=== PATIENT | female | born 1980 | race Two or more races ===

== ENCOUNTER → 2016-12-28 | Outpatient (REF) | payer BC ==
[2016-12-28 12:20] LABS: THYROXINE (T4) 5.8 UG/DL (4.5-12.0)
== END ==
LOC: M SFHCCLAY 09:04
PROVIDERS: ATTEND Family Medicine
DX: E03.9 Hypothyroidism, unspecified (principal)

== ENCOUNTER → 2017-02-14 | Outpatient (REF) | payer BC | LOC: M SFHCCLAY 11:36 | PROVIDERS: ATTEND Family Medicine | DX: E03.9 Hypothyroidism, unspecified (principal) ==

== ENCOUNTER → 2017-03-23 | Outpatient (REF) | payer BC | LOC: M SFHCCLAY 11:04 | PROVIDERS: ATTEND Family Medicine | DX: E03.9 Hypothyroidism, unspecified (principal) ==

== ENCOUNTER → 2018-02-18 | Outpatient (REF) | payer BC | LOC: M SFHCCLAY 15:32 | DX: E03.9 Hypothyroidism, unspecified (principal) | CPT/HCPCS: 84443 ==

== ENCOUNTER → 2018-08-10 | Outpatient (CLI) | payer BC | LOC: M WUC 12:15 | DX: M51.34 Other intervertebral disc degeneration, thoracic region (principal); M40.204 Unspecified kyphosis, thoracic region; M54.5 Low back pain; Z97.5 Presence of (intrauterine) contraceptive device | CPT/HCPCS: 72072 ==

== ENCOUNTER → 2018-10-28 | Outpatient (REF) | payer BC ==
[2018-10-28 17:36] LABS: BASO # 0.1 10^3/uL (0.0-0.2); EOS # 0.7 10^3/uL (0.0-0.50); EOS % 7.4 % (0.0-3.0); HEMATOCRIT 40.5 % (36.0-47.0); HEMOGLOBIN 13.2 g/dl (12.0-15.5); LYMPH # 3.8 10^3/uL (1.5-4.5); LYMPH % 40.9 % (24.0-44.0); MEAN CORPUSCULAR HEMOGLOBIN 28.8 pg (27.0-33.0); MEAN CORPUSCULAR HGB CONC 32.6 g/dl (32.0-36.5); MEAN CORPUSCULAR VOLUME 88.2 fl (80.0-96.0); MONO # 0.7 10^3/uL (0.0-0.8); MONO % 7.2 % (0.0-5.0); NEUTROPHILS # 4.1 10^3/uL (1.8-7.7); NEUTROPHILS % 43.3 % (36.0-66.0); PLATELET COUNT, AUTOMATED 253 10^3/uL (150-450); RED BLOOD COUNT 4.59 10^6/uL (4.00-5.40); WHITE BLOOD COUNT 9.4 10^3/uL (4.0-10.0)
[2018-10-28 17:46] LABS: ALBUMIN 4.2 GM/DL (3.2-5.2); ALT/SGPT 18 U/L (12-78); BILIRUBIN,TOTAL 0.3 MG/DL (0.2-1.0); BLOOD UREA NITROGEN 14 MG/DL (7-18); CALCIUM LEVEL 9.3 MG/DL (8.5-10.1); CARBON DIOXIDE LEVEL 28 MEQ/L (21-32); CHLORIDE LEVEL 106 MEQ/L (98-107); CREATININE FOR GFR 0.73 MG/DL (0.55-1.30); GLOMERULAR FILTRATION RATE > 60.0 (>60); GLUCOSE, FASTING 85 MG/DL (70-100); POTASSIUM SERUM 4.3 MEQ/L (3.5-5.1); SODIUM LEVEL 140 MEQ/L (136-145); TOTAL PROTEIN 7.4 GM/DL (6.4-8.2)
[2018-10-28 17:47] LABS: FOLATE 8.1 NG/ML (>5.4)
[2018-10-28 19:13] LABS: VITAMIN B12 LEVEL 839 PG/ML (247-911)
== END ==
LOC: M SFHCCLAY 10:38
PROVIDERS: ATTEND Family Medicine
DX: E03.9 Hypothyroidism, unspecified (principal); R20.2 Paresthesia of skin; R20.0 Anesthesia of skin

== ENCOUNTER → 2018-11-09 | Outpatient (CLI) | payer BC ==
--- NOTE | 2018-11-11 09:03 | REP ---
MR THORACIC SPINE WITHOUT CONTRAST: HISTORY: Back pain. A small central disc protrusion is present at the T5-6 level. There is minimal effacement of the thecal sac without spinal cord compression. The T5 neural foramina are patent. A small right paracentral disc protrusion is present at the T7-8 level. There is minimal effacement of the thecal sac without spinal cord compression. The T7 neural foramina are patent. There is no other disc bugle or herniation. The remaining neural foramina are patent. The spinal cord is normal in signal intensity. There is loss of height of several mid thoracic intervertebral discs consistent with disc degeneration. Increased signal intensity on T2-weighted images is present in the endplates of several mid thoracic vertebral bodies. This represents degenerative change. IMPRESSION: Small disc protrusions at the T5-6 and T7-8 levels without spinal cord compression. Electronically Signed by Best Shetty MD 11/11/2018 09:49 A
== END ==
LOC: M RAD 09:15
PROVIDERS: ATTEND Family Medicine
DX: R20.2 Paresthesia of skin (principal); M51.24 Other intervertebral disc displacement, thoracic region

== ENCOUNTER → 2018-11-19 | Outpatient (REF) | payer BC ==
[2018-11-19 14:21] LABS: ALBUMIN 4.2 GM/DL (3.2-5.2); ALT/SGPT 18 U/L (12-78); BILIRUBIN,TOTAL 0.5 MG/DL (0.2-1.0); BLOOD UREA NITROGEN 14 MG/DL (7-18); CALCIUM LEVEL 9.1 MG/DL (8.5-10.1); CARBON DIOXIDE LEVEL 26 MEQ/L (21-32); CHLORIDE LEVEL 107 MEQ/L (98-107); CREATININE FOR GFR 0.74 MG/DL (0.55-1.30); GLOMERULAR FILTRATION RATE > 60.0 (>60); GLUCOSE, FASTING 74 MG/DL (70-100); RHEUMATOID FACTOR QUANT < 10.0 IU/ML (<15.0); SODIUM LEVEL 140 MEQ/L (136-145); TOTAL PROTEIN 7.7 GM/DL (6.4-8.2)
[2018-11-20 10:42] LABS: DRVV SCREEN 39.1 SEC
[2018-11-20 10:49] LABS: PTT LUPUS TYPE ANTICOAG SCREEN 0.9 (0-1.2)
[2018-11-21 10:28] LABS: ALBUMIN 4.79 GM/DL (3.29-5.55); ALBUMIN % 62.2 % (55.8-66.1); ALPHA-1-GLOBULIN % 3.1 % (2.9-4.9); ALPHA-1-GLOBULINS 0.24 GM/DL (0.17-0.41); ALPHA-2-GLOBULINS 0.68 GM/DL (0.42-0.99); ALPHA-2-GLOBULINS % 8.8 % (7.1-11.8); BETA-1-GLOBULINS 0.43 GM/DL (0.28-0.60); BETA-1-GLOBULINS % 5.6 % (4.7-7.2); BETA-2-GLOBULINS 0.36 GM/DL (0.19-0.55); BETA-2-GLOBULINS % 4.7 % (3.2-6.5); GAMMA GLOBULIN % 15.6 % (11.1-18.8)
[2018-11-24 00:07] LABS: ANCA-ATYPICAL <1:20 titer (Neg:<1:20); ANTI DOUBLE STRAND-DNA AB 4 IU/mL (0-9); ANTINUCLEAR ANTIBODIES DIRECT Negative (Negative); CYTOPLASMIC NEUTROP AB ANCA-C <1:20 titer (Neg:<1:20); PERINUCLEAR AB ANCA-P <1:20 titer (Neg:<1:20); SJOGREN'S ANTI SS-A <0.2 AI (0.0-0.9); SJOGREN'S ANTI SS-B <0.2 AI (0.0-0.9); VITAMIN B1 LEVEL WHOLE BLOOD 115.5 nmol/L (66.5-200.0); VITAMIN B6,PYRIDOXAL PHOSPHATE 10.9 ug/L (2.0-32.8); VITAMIN E(ALPHA TOCOPHEROL) 11.3 mg/L (5.9-19.4); VITAMIN E(GAMMA TOCOPHEROL) 0.9 mg/L (0.7-4.9)
== END ==
LOC: M LABNEURO 10:21
PROVIDERS: ATTEND Psychiatry & Neurology Neurology
DX: G62.9 Polyneuropathy, unspecified (principal)

== ENCOUNTER 2019-01-10 06:00 | Day surgery (SDC) | payer BC ==
[~2019-01-10] VITALS: Ht 175.3 cm; Wt 81.1 kg
[~2019-01-10 06:00] MED LIST: LR 1,000 ML IV SCH; SYNT75TA PO
[2019-01-10 06:43] LABS: URINE PREG TEST NEGATIVE (NEGATIVE)
[2019-01-10] MEDS ORDERED: PROPOFOL 200 MG/20 ML VIAL As Ordered ONE ×2 (07:05→08:05)
[2019-01-10] MEDS ORDERED: LIDOCAINE 2% INJ 100 MG/5 ML SDV (FOR ANES.) As Ordered ONE (07:05)
[2019-01-10] MEDS ORDERED: dexameTHASONE 4 MG/ML 1ML VIAL (J1100) As Ordered ONE (07:06)
[2019-01-10] MEDS ORDERED: KETOROLAC 60 MG/2 ML VIAL (J1885) As Ordered ONE (07:06)
[2019-01-10] MEDS ORDERED: ROCURONIUM BROMIDE 50 MG/5 ML VIAL As Ordered ONE (07:06)
[2019-01-10] MEDS ORDERED: ONDANSETRON 4MG/2ML VIAL (J2405) As Ordered ONE (07:06)
[2019-01-10] MEDS ORDERED: ACETAMINOPHEN 1000MG 100ML IV BTL (OFIRMEV) (J0131 PER 10MG) As Ordered ONE (07:06)
[2019-01-10] MEDS ORDERED: BUPIVACAINE HCL 0.25% 30 ML VIAL As Ordered ONE (07:09)
[2019-01-10] MEDS ORDERED: LIDOCAINE 1% SDV INJ 30 ML VIAL As Ordered ONE (07:09)
[2019-01-10] MEDS ORDERED: fentaNYL 100 MCG/2 ML INJECTION (J3010) As Ordered ONE ×2 (07:17→07:59)
[2019-01-10] MEDS ORDERED: MIDAZOLAM INJ 2 MG/2 ML VIAL (J2250) As Ordered ONE (07:17)
[2019-01-10] MEDS ORDERED: METOCLOPRAMIDE INJ 10MG/2ML VIAL (J2765) As Ordered ONE (07:46)
--- NOTE | 2019-01-10 09:12 | ROOPDOC ---
[facility] Report Of Operation Report of Operation DATE OF PROCEDURE: 01/10/19 PREPROCEDURE DIAGNOSES: umbilical hernia POSTPROCEDURE DIAGNOSES: umbilical hernia. PROCEDURE: open umbilical hernia repair. SURGEON: Eliud Phillips MD ANESTHESIA: Gen. anesthesia ESTIMATED BLOOD LOSS: Approximately 5 mL (minimal bleeding) COMPLICATIONS: None. REMARKS: Healthy 38-year-old female with a small bulge to the left of her umbilical cleft with some discomfort with bending. PROCEDURE NOTE: About a 2 cm knuckle of preperitoneal fat tissue protruding through a small defect (less than 1 cm) DESCRIPTION OF PROCEDURE: Patient was given a dose of Ancef 2 g IV for prophylactic antibiotic. She is brought to the operating room, placed supine on the table. Sequential Compression boots placed on both lower extremities for DVT prophylaxis. Gen. endotracheal anesthesia started. Her abdomen was then prepped and draped widely in usual sterile fashion.We paused for a surgical timeout using both pre- incision safety checklist to verify correct patient, procedure site and additional clinical information prior to beginning the procedure. She has a small (roughly 2 cm protrusion underneath the left side of the umbilical skin cleft. The area underneath the umbilical cleft was infiltrated with local anesthesia using 1% lidocaine and 1/4% Marcaine. A curvilinear incision was then created underneath the umbilical skin cleft and deepened through the subcutaneous tissue the umbilical skin cleft was dissected free of the hernia. There was no clear hernia sac but lobulated adipose tissue protruding through the umbilical fascial defect. The subcutaneous tissue around the umbilicus was circumferentially dissected free. The adipose tissue was freed up from its attachments around the umbilical defect ligated in between hemostats with 2-0 Vicryl and reduced back into the abdomen. The size and character of the fascial defect was examined her some slight thinning at the edges but the defect itself could only accommodate the tip of the hemostats. I closed the umbilical defect with 0 Ethibond in a mattress fashion. The surgical site was inspected for hemostasis. The bottom of the umbilical cleft was replaced back in the ascending, position and tacked to the fascia. The incision was then closed in layers using 3-0 Vicryl at the subcutaneous space and dermis to align the skin incision and a running suture of 4-0 Monocryl in subcuticular fashion was then used to close the skin. Extra doses of local anesthesia was placed both at the fascia and subcutaneous space surrounding the incision. Steri-Strips and gauze dressings in place to cover the incision covered with Tegaderm. Patient tolerated the procedure well. She was promptly awakened, extubated and brought to recovery room stable. ELIUD PHILLIPS MD January 10, 2019 09:12
[2019-01-10] MEDS ORDERED: MEPERIDINE INJ 25 MG/ML VIAL (J2175) IV PRN (09:30)
[2019-01-10] MEDS ORDERED: ONDANSETRON 4MG/2ML VIAL (J2405) IV PRN ×2 (09:30)
[2019-01-10] MEDS ORDERED: KETOROLAC 30 MG/ML VIAL (J1885) IV PRN (09:30)
[2019-01-10] MEDS ORDERED: fentaNYL 100 MCG/2 ML INJECTION (J3010) IV PRN (09:30)
[2019-01-10] MEDS ORDERED: LR 1,000 ML IV SCH (09:30)
[2019-01-10] MEDS ORDERED: NORCO, ANEXSIA 5/325MG TABLET (HYDROcodone/ACETAMINOPHEN) PO PRN ×2 (09:30)
[2019-01-10] MEDS ORDERED: PERCOCET 5MG/325MG TAB PO PRN (09:30)
[2019-01-10] MEDS ORDERED: METOCLOPRAMIDE INJ 10MG/2ML VIAL (J2765) IV PRN (09:30)
[2019-01-10 09:55] VITALS: BP 117/59
== END 2019-01-10 10:00 | disposition home or self-care (01) ==
LOC: M SDC 06:00
PROVIDERS: ATTEND Surgery
DX: K42.9 Umbilical hernia without obstruction or gangrene (principal); E03.9 Hypothyroidism, unspecified; F41.9 Anxiety disorder, unspecified; Z79.899 Other long term (current) drug therapy; Z87.891 Personal history of nicotine dependence
CPT/HCPCS: 49585; 84703; J0131; J0690; J1100; J1885; J2250; J2405; J2765; J3010

== ENCOUNTER → 2019-02-24 | Outpatient (REF) | payer BC ==
[~2019-02-24] MED LIST changes: -LR 1,000 ML IV SCH
[2019-02-24 17:44] LABS: FREE T4 0.91 NG/DL (0.76-1.46); THYROID PEROXIDASE ANTIBODY 664.7 U/ML (<60.0); THYROID STIMULATING HORMONE 2.34 uIU/ML (0.358-3.740); TOTAL T3 84.8 NG/DL (60.0-181.0)
== END ==
LOC: M SFHCCLAY 10:40
PROVIDERS: ATTEND Family Medicine
DX: E03.9 Hypothyroidism, unspecified (principal)

== ENCOUNTER → 2019-04-29 | Outpatient (CLI) | payer BC ==
[2019-04-29 17:18] LABS: THYROID STIMULATING HORMONE 2.7 uIU/ML (0.358-3.740); THYROXINE (T4) 8.2 UG/DL (4.5-12.0)
[2019-04-30 09:48] LABS: TOTAL T3 72.8 NG/DL (60.0-181.0)
== END ==
LOC: M WUC 13:44
PROVIDERS: ATTEND Family Medicine
DX: E03.9 Hypothyroidism, unspecified (principal)